=== PATIENT | female | born 1960 | race Caucasian/White ===

== ENCOUNTER 2016-07-25 18:30 | Emergency (ER) | payer OTHER ==
[~2016-07-25] VITALS: Ht 160 cm; Wt 92.9 kg
[2016-07-25 18:52] VITALS: BP 142/104; PULSE 86; RESP 16; TEMP 98.4; O2SAT 99
[2016-07-25 19:20] VITALS: RESP 16; O2SAT 98
[2016-07-25] MEDS ORDERED: PANT40TA3 PO (19:24)
[2016-07-25] MEDS ORDERED: OXYB5TAB10 PO (19:24)
[2016-07-25] MEDS ORDERED: NORT25CA PO (19:24)
[2016-07-25] MEDS ORDERED: ESTR2TAB PO (19:24)
[2016-07-25] MEDS ORDERED: GABA600T PO (19:24)
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
[2016-07-25] MEDS ORDERED: SODIUM CHLORIDE 0.9% FLUSH 10 ML FLUSH IV FLUSH PRN (19:45)
[2016-07-25 20:08] LABS: POTASSIUM 3.7 MEQ/L (3.5-5.1)
[2016-07-25 20:11] LABS: BICARBONATE 27.4 MEQ/L (21.0-32.0)
[2016-07-25 20:13] LABS: AUTOMATED NEUTROPHIL # 12.6 TH/MM3 (1.8-7.7); BASOPHIL # 0.2 TH/MM3 (0-0.2); EOSINOPHIL # 0.1 TH/MM3 (0-0.4); EOSINOPHIL % 0.5 % (0.0-4.0); HEMATOCRIT 40.7 % (35.0-46.0); LYMPH % 12.9 % (9.0-44.0); LYMPHOCYTE # 1.9 TH/MM3 (1.0-4.8); MEAN CELL VOLUME 79.6 FL (80.0-100.0); MEAN CORPUSCULAR HEMOGLOBIN 26.3 PG (27.0-34.0); MONO % 2.2 % (0.0-8.0); NEUT % 83.4 % (16.0-70.0); PLATELET COUNT 262 TH/MM3 (150-450); RED BLOOD COUNT 5.11 MIL/MM3 (4.00-5.30); RED CELL DISTRIBUTION WIDTH 13.6 % (11.6-17.2); WHITE BLOOD COUNT 15.1 TH/MM3 (4.0-11.0)
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
[2016-07-25 20:20] LABS: HEMO FLAGS AUTO DIFF
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
[2016-07-25] MEDS ORDERED: IOHEXOL 350 MG/ML 10 ML VIAL (for RAD DIAG) IV ONE (21:07)
[2016-07-25 21:08] LABS: PLATELET ESTIMATE SMEAR NORMAL (NORMAL); PLATELET MORPHOLOGY NORMAL (NORMAL); SCAN/DIFF AUTO DIFF CONFIRMED
[2016-07-25 21:17] VITALS: BP 174/90; PULSE 103; RESP 16; O2SAT 97
[2016-07-25] MEDS ORDERED: HYDR-3533 PO (21:43)
[2016-07-25] MEDS ORDERED: PROM25TA5 PO (21:43)
== END 2016-07-25 22:16 | disposition home or self-care (01) ==
LOC: PHEFT 18:30
DX: S30.1XXA Contusion of abdominal wall, initial encounter (principal); S20.219A Contusion of unspecified front wall of thorax, initial encounter; I10 Essential (primary) hypertension; E78.00 Pure hypercholesterolemia, unspecified; V43.52XA Car driver injured in collision with other type car in traffic accident, initial encounter; W22.11XA Striking against or struck by driver side automobile airbag, initial encounter
CPT/HCPCS: 71020; 74177; 80048; 85025; 99284; Q9967